=== PATIENT | male | born 1940 | race Caucasian/White ===

== ENCOUNTER 2020-01-02 20:15 | Inpatient (IN) | payer MEDICARE ==
[2020-01-02] MEDS ORDERED: Rocephin 1000 MG INJ IV ONE (20:24)
[2020-01-02] MEDS ORDERED: Rocephin 1000 MG INJ IM ONE (20:24)
[2020-01-02] MEDS ORDERED: ROCEPHIN 1 Gm-D5w 50 ml Bag** 1 G/50 ML IVPB IV ONE (20:40)
[2020-01-02] MEDS ORDERED: ROCEPHIN 1 Gm-D5w 50 ml Bag** 1 G/50 ML IVPB IV STA (20:44)
[2020-01-02 20:46] LABS: BASOPHIL % 0.4 % (0.0-0.4); Basophil (Absolute #) 0.03 (0-0.4); Eosinophil % 1.5 % (0.00-5.0); Eosinophil (Absolute #) 0.13 (0-0.5); Hematocrit 36.5 % (42-50); Hemoglobin 11.7 gm/dl (12.5-18.0); Lymphocyte (Absolute #) 0.91 (1.0-4.6); Lymphocytes % 10.8 % (24.0-44.0); Mean Cell Volume 90.8 fl (78-100); Mean Corpuscular Hemoglobin 29.1 pg (26-32); Mean Corpuscular Hgb Concent. 32.1 g/dl (32-36); Mean Platelet Volume 9.9 fl (7.5-11.0); Monocyte (Absolute #) 0.66 (0.0-1.3); Monocytes % 7.8 % (0.0-12.0); Neutrophil % 79.5 % (36.0-66.0); Platelet Count 409 K/mm3 (150-450); Red Blood Count 4.02 M/mm3 (4.1-5.6); Red Cell Distribution Width 13.3 % (11.5-14.0); White Blood Count 8.4 K/mm3 (4.0-10.5)
[2020-01-02 21:07] LABS: ALBUMIN 4.1 g/dL (3.5-5.0); ANION GAP 15.3 MEQ/L (5-15); BILIRUBIN,TOTAL 0.4 mg/dL (0.2-1.3); Calcium 9.9 mg/dL (8.4-10.2); Creatinine 1 1.85 mg/dL (0.66-1.25); Potassium 4.8 mmol/L (3.5-5.1)
--- NOTE | 2020-01-02 21:08 | ERPHSYRPT ---
- History of Present Illness Time Seen by Provider: 01/02/20 20:20 Source: patient, family Exam Limitations: no limitations Patient Subjective Stated Complaint: pt states that he went [facility] for redness to rt lower extremity, pt states that [facility] did a doppler, pt states that doppler was negative for DVT, pt states that he went [facility] to [facility] saturday for increased swelling and redness, pt states that his antibiotic was changed to bactrim on saturday Triage Nursing Assessment: pt ambulated into the er, axo x3, pt is hypertensive , redness to RLE, swelling present, RLE is warm, shinny, positive pedal pulses, pt states 3/10 pain to RLE, pitting edema to rt foot, nails are yellow and thick Timing/Duration: day(s) (6), constant, worse Quality: painful Severity: moderate Location: extremities (RT lower EXT) Associated Symptoms: edema, rash Allergies/Adverse Reactions: No Known Drug Allergies Allergy (Verified 01/02/20 20:42) Home Medications: Metformin HCl 500 mg [Glucophage 500 MG] 500 mg PO BID 07/17/12 [History] Moexipril HCl 15 mg [Univasc 15 MG] 15 mg PO DAILY 07/17/12 [History] Multivitamin [Multivitamins] 1 each PO DAILY 07/17/12 [History] Potassium Chloride 10 Meq Tab* [Klor Con 10 MEQ] 10 meq PO DAILY 07/17/12 [ History] Simvastatin 20Mg [Zocor 20Mg] 10 mg PO DAILY 07/17/12 [History] Diltiazem HCl [Cartia Xt] 240 mg PO DAILY 01/02/20 [History] Losartan Potassium 100 mg PO DAILY 01/02/20 [History] Metoprolol Tartrate 50 mg [Lopressor 50 MG] 50 mg PO BID 01/02/20 [History ] Hx Tetanus, Diphtheria Vaccination/Date Given: Yes (07/17/12) Hx Influenza Vaccination/Date Given: Yes Hx Pneumococcal Vaccination/Date Given: Yes (2 years ago) - Review of Systems Constitutional: No Fever, No Chills Eyes: No Symptoms Ears, Nose, & Throat: No Symptoms Respiratory: No Cough, No Dyspnea Cardiac: No Chest Pain, No Edema, No Syncope Abdominal/Gastrointestinal: No Abdominal Pain, No Nausea, No Vomiting, No Diarrhea Genitourinary Symptoms: No Dysuria Musculoskeletal: No Back Pain, No Neck Pain Skin: Cellulitis, Rash Neurological: No Dizziness, No Focal Weakness, No Sensory Changes Psychological: No Symptoms Endocrine: No Symptoms All Other Systems: Reviewed and Negative - Past Medical History Neurological History: No Pertinent History ENT History: Cataracts Cardiac History: High Cholesterol, Hypertension Respiratory History: No Pertinent History Endocrine Medical History: Diabetes Type II Musculoskeletal History: Fractures GI Medical History: No Pertinent History History: No Pertinent History Psycho-Social History: No Pertinent History 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% - Past Surgical History Past Surgical History: Yes Neuro Surgical History: No Pertinent History Cardiac: No Pertinent History Respiratory: No Pertinent History Gastrointestinal: No Pertinent History Genitourinary: No Pertinent History Musculoskeletal: Orthopedic Surgery Male Surgical History: Testicular Surgery Other Surgical History: cataract surgery both eyes - Social History Smoking Status: Former smoker Exposure to second hand smoke: No Drug Use: none Patient Lives Alone: No - Nursing Vital Signs Nursing Vital Signs: Initial Vital Signs Temperature 97.5 F 01/02/20 20:23 Pulse Rate 64 01/02/20 20:23 Respiratory Rate 21 01/02/20 20:23 Blood Pressure 160/67 01/02/20 20:23 O2 Sat by Pulse Oximetry 96 01/02/20 20:23 Pain Scale Pain Intensity 3 - Physical Exam General Appearance: no apparent distress, alert Eye Exam: PERRL/EOMI, eyes nml inspection Ears, Nose, Throat Exam: normal ENT inspection, pharynx normal, moist mucous membranes Neck Exam: normal inspection, non-tender, supple, full range of motion Respiratory Exam: normal breath sounds, lungs clear, No respiratory distress Cardiovascular Exam: regular rate/rhythm, normal heart sounds Gastrointestinal/Abdomen Exam: soft, mass, No tenderness Back Exam: normal inspection, normal range of motion, No CVA tenderness, No vertebral tenderness Extremity Exam: normal inspection, normal range of motion Neurologic Exam: alert, oriented x 3, cooperative, normal mood/affect, sensation nml, No motor deficits Skin Exam: warm, dry, other (Small patch of blistering lesions, yellow colored, surrounding erythema, mildly tender. Rt lower leg.) SpO2: 97 Ordered Tests: Active Orders 24 hr Category Date Time Status IV Insertion STAT Care 01/02/20 20:24 Completed Low Sodium Diet 01/02/20 Breakfast Active BMP AM.LAB Lab 01/03/20 04:00 Ordered CBC W DIFF AM.LAB Lab 01/03/20 04:00 Ordered CBC W DIFF Stat Lab 01/02/20 20:24 Completed CMP Stat Lab 01/02/20 20:24 Completed Medication Summary Generic Name Dose Route Start Last Admin Trade Name Liza PRN Reason Stop Dose Admin Acetaminophen 650 mg 01/02/20 22:15 Tylenol 325 Mg PO 02/01/20 22:14 Q4H PRN PRN PAIN AND/OR FEVER Ceftriaxone Sodium/Dextrose 1 g in 50 mls @ 100 mls/hr 01/03/20 10:00 Rocephin 1 Gm-D5w 50 Ml Bag IV 02/02/20 09:59 Q24H10 LANNY Sodium Chloride 1,000 mls @ 100 mls/hr 01/02/20 22:15 01/02/20 23:21 Sodium Chloride 0.9% 1000 Ml IV 02/01/20 22:14 100 mls/hr .Q10H LANNY Administration Vancomycin HCl 1 gm/ Sodium 250 mls @ 167 mls/hr 01/02/20 22:30 01/02/20 23: 22 Chloride IV 02/01/20 22:29 167 mls/hr Q24H LANNY Administration Discontinued Medications Generic Name Dose Route Start Last Admin Trade Name Liza PRN Reason Stop Dose Admin Ceftriaxone Sodium mg 01/02/20 20:24 Rocephin 1000 Mg Inj IM 01/02/20 20:25 STAT ONE Ceftriaxone Sodium 1,000 mg 01/02/20 20:24 01/02/20 20:44 Rocephin 1000 Mg Inj IV 01/02/20 20:25 Not Given STAT ONE Ceftriaxone Sodium/Dextrose Confirm 01/02/20 20:40 Rocephin 1 Gm-D5w 50 Ml Bag Administered 01/02/20 20:41 Dose 1 g in 50 mls @ ud IV .[facility]-MED ONE Ceftriaxone Sodium/Dextrose 1 g in 50 mls @ 100 mls/hr 01/02/20 20:44 21:18 Rocephin 1 Gm-D5w 50 Ml Bag IV 01/02/20 21:13 Infused STAT STA Infusion Vancomycin HCl Confirm 01/02/20 23:02 Vancomycin 1gm/ Ns 250ml Administered 01/02/20 23:03 Dose 250 mls @ IV .[facility] Lab/Rad Data: Laboratory Result Diagrams 01/02/20 20:24 01/02/20 20:24 Laboratory Results 01/02/20 01/02/20 Range/Units 20:24 20:24 WBC 8.4 (4.0-10.5) K/mm3 RBC 4.02 L (4.1-5.6) M/mm3 Hgb 11.7 L (12.5-18.0) gm/dl Hct 36.5 L (42-50) % MCV 90.8 (78-100) fl MCH 29.1 (26-32) pg MCHC 32.1 (32-36) g/dl RDW 13.3 (11.5-14.0) % Plt Count 409 (150-450) K/mm3 MPV 9.9 (7.5-11.0) fl Gran % 79.5 H (36.0-66.0) % Eos # (Auto) 0.13 (0-0.5) Absolute Lymphs (auto) 0.91 L (1.0-4.6) Absolute Monos (auto) 0.66 (0.0-1.3) Lymphocytes % 10.8 L (24.0-44.0) % Monocytes % 7.8 (0.0-12.0) % Eosinophils % 1.5 (0.00-5.0) % Basophils % 0.4 (0.0-0.4) % Absolute Granulocytes 6.70 (1.4-6.9) Basophils # 0.03 (0-0.4) Sodium 140 (137-145) mmol/L Potassium 4.8 (3.5-5.1) mmol/L Chloride 101 (98-107) mmol/L Carbon Dioxide 28 (22-30) mmol/L Anion Gap 15.3 H (5-15) MEQ/L BUN 39 H (9-20) mg/dL Creatinine 1.85 H (0.66-1.25) mg/dL Estimated GFR 37.9 ML/MIN Glucose 121 H (74-106) mg/dL Calcium 9.9 (8.4-10.2) mg/dL Total Bilirubin 0.40 (0.2-1.3) mg/dL AST 42 (17-59) U/L ALT 44 (0-50) U/L Alkaline Phosphatase 77 (38-126) U/L Serum Total Protein 8.0 (6.3-8.2) g/dL Albumin 4.1 (3.5-5.0) g/dL - Progress Progress: improved (PT is better. Will admit given failed outpatient tx x 2.) - Departure Departure Disposition: In-patient Admission Clinical Impression: Cellulitis of leg, Cellulitis and abscess of foot Condition: Stable Critical Care Time: No
[2020-01-02] MEDS ORDERED: TYLENOL 325 MG PO PRN (22:15)
[2020-01-02] MEDS ORDERED: VANCOCIN 1 GM VIAL*** 1 GM in Sodium Chloride 0.9% 250 ML 250 ML IV SCH (22:30)
[2020-01-02] MEDS ORDERED: Vancomycin 1GM/ Ns 250ML*** 250 ML IV ONE (23:02)
[2020-01-02] MEDS: Sodium Chloride 0.9% 1000 ML 1,000 ML IV SCH (23:21)
[2020-01-03 05:11] LABS: Absolute Neutrophil Ct (ANC) 5.01 (1.4-6.9); BASOPHIL % 0.3 % (0.0-0.4); Basophil (Absolute #) 0.02 (0-0.4); Eosinophil % 2.3 % (0.00-5.0); Eosinophil (Absolute #) 0.16 (0-0.5); Hematocrit 32.5 % (42-50); Hemoglobin 10.3 gm/dl (12.5-18.0); Lymphocytes % 15.9 % (24.0-44.0); Mean Corpuscular Hemoglobin 28.9 pg (26-32); Mean Corpuscular Hgb Concent. 31.7 g/dl (32-36); Mean Platelet Volume 9.4 fl (7.5-11.0); Monocyte (Absolute #) 0.63 (0.0-1.3); Monocytes % 9.1 % (0.0-12.0); Neutrophil % 72.4 % (36.0-66.0); Platelet Count 343 K/mm3 (150-450); Red Blood Count 3.57 M/mm3 (4.1-5.6); Red Cell Distribution Width 13.3 % (11.5-14.0); White Blood Count 6.9 K/mm3 (4.0-10.5)
[2020-01-03 05:44] LABS: ANION GAP 13.4 MEQ/L (5-15); Creatinine 1 1.67 mg/dL (0.66-1.25); Potassium 4.8 mmol/L (3.5-5.1)
--- NOTE | 2020-01-03 12:50 | PCM.HP ---
History of Present Illness - Chief Complaint Chief Complaint: RLE cellulitis History of Present Illness: is a 79 year old male pt of Dr. Flynn with PMHc DM, HTN, renal insufficiency, and chronic venous stasis who was admitted through ER last night with RLE cellulitis. He had been to 5d ago where doppler was neg for DVT and he was started on po keflex. Then 2d ago he had increased edema and redness and returned to , where the keflex was changed to bactrim. His WBC were 8.4 at admission; 6.9 today. His eGFR is 42.6. Pt states he's been having a cough that is productive of clear sputum. - Review of Systems Respiratory: Cough Skin: Cellulitis All Other Systems: Reviewed and Negative Medications & Allergies Home Medications: Home Medication List Metformin HCl 500 mg [Glucophage 500 MG] 500 mg PO BID 07/17/12 [History Confirmed 07/17/12] Moexipril HCl 15 mg [Univasc 15 MG] 15 mg PO DAILY 07/17/12 [History Confirmed 01/03/20] Multivitamin [Multivitamins] 1 each PO DAILY 07/17/12 [History Confirmed ] Potassium Chloride 10 Meq Tab* [Klor Con 10 MEQ] 10 meq PO DAILY 07/17/12 [ History Confirmed 07/17/12] Simvastatin 20Mg [Zocor 20Mg] 10 mg PO DAILY 07/17/12 [History Confirmed 01/21] Diltiazem HCl [Cartia Xt] 240 mg PO DAILY 01/02/20 [History Confirmed 01/02/20] Losartan Potassium 100 mg PO DAILY 01/02/20 [History Confirmed 01/02/20] Metoprolol Tartrate 50 mg [Lopressor 50 MG] 50 mg PO BID 01/02/20 [ History Confirmed 01/02/20] Allergies/Adverse Reactions: Allergies Allergy/AdvReac Type Severity Reaction Status Date / Time No Known Drug Allergies Allergy Verified 01/02/20 20:42 - Past Medical History Neurological History: No Pertinent History ENT History: Cataracts Cardiac History: High Cholesterol, Hypertension Respiratory History: No Pertinent History Endocrine Medical History: Diabetes Type II Musculoskelatal History: Fractures GI Medical History: No Pertinent History History: No Pertinent History Pyscho-Social History: No Pertinent History 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% - Past Surgical History Past Surgical History: Yes Neuro Surgical History: No Pertinent History Cardiac History: No Pertinent History Respiratory Surgery: No Pertinent History GI Surgical History: No Pertinent History Genitourinary Surgical Hx: No Pertinent History Musculskeletal Surgical Hx: Orthopedic Surgery Male Surgical History: Testicular Surgery Other Surgical History: cataract surgery both eyes - Social History Smoking Status: Former smoker Exposure to second hand smoke: No Alcohol: None Drug Use: none - Physical Exam Vital Signs: Vital Signs - 24 hr Temp Pulse Resp BP Pulse Ox 01/03/20 12:00 97.8 F 68 20 175/74 95 01/03/20 08:00 98.1 F 67 24 159/68 93 L 01/03/20 04:15 98.0 F 58 L 18 145/66 95 01/03/20 02:00 97 01/02/20 23:31 98.3 F 57 L 18 157/70 96 01/02/20 22:36 64 149/71 95 01/02/20 22:23 63 133/75 96 01/02/20 21:20 60 134/74 95 01/02/20 20:23 97.5 F 64 21 160/67 97 General Appearance: no apparent distress, alert Neurologic Exam: oriented x 3, cooperative Eye Exam: eyes nml inspection Ears, Nose, Throat Exam: moist mucous membranes Neck Exam: normal inspection, non-tender, No lymphadenopathy Respiratory Exam: diminished breath sounds (good air exchange), wheezing (faint expiratory wheezes), No crackles/rales, No rhonchi Cardiovascular Exam: regular rate/rhythm, normal heart sounds, No murmur Gastrointestinal/Abdomen Exam: soft, normal bowel sounds, No tenderness, No distention, No mass, No guarding, No rebound Extremity Exam: other (RLE edema, most marked of the foot. Erythema is present to approx 1/[address] from the ankle to the knee. There are no distinct open lesions.) Results - Labs Lab/Micro Results: Lab Results-Last 24 Hours 01/02/20 01/02/20 01/03/20 Range/Units 20:24 20:24 05:09 WBC 8.4 6.9 (4.0-10.5) K/mm3 RBC 4.02 L 3.57 L (4.1-5.6) M/mm3 Hgb 11.7 L 10.3 L (12.5-18.0) gm/dl Hct 36.5 L 32.5 L (42-50) % MCV 90.8 91.0 (78-100) fl MCH 29.1 28.9 (26-32) pg MCHC 32.1 31.7 L (32-36) g/dl RDW 13.3 13.3 (11.5-14.0) % Plt Count 409 343 (150-450) K/mm3 MPV 9.9 9.4 (7.5-11.0) fl Gran % 79.5 H 72.4 H (36.0-66.0) % Eos # (Auto) 0.13 0.16 (0-0.5) Absolute Lymphs (auto) 0.91 L 1.10 (1.0-4.6) Absolute Monos (auto) 0.66 0.63 (0.0-1.3) Lymphocytes % 10.8 L 15.9 L (24.0-44.0) % Monocytes % 7.8 9.1 (0.0-12.0) % Eosinophils % 1.5 2.3 (0.00-5.0) % Basophils % 0.4 0.3 (0.0-0.4) % Absolute Granulocytes 6.70 5.01 (1.4-6.9) Basophils # 0.03 0.02 (0-0.4) Sodium 140 (137-145) mmol/L Potassium 4.8 (3.5-5.1) mmol/L Chloride 101 (98-107) mmol/L Carbon Dioxide 28 (22-30) mmol/L Anion Gap 15.3 H (5-15) MEQ/L BUN 39 H (9-20) mg/dL Creatinine 1.85 H (0.66-1.25) mg/dL Estimated GFR 37.9 ML/MIN Glucose 121 H (74-106) mg/dL Calcium 9.9 (8.4-10.2) mg/dL Total Bilirubin 0.40 (0.2-1.3) mg/dL AST 42 (17-59) U/L ALT 44 (0-50) U/L Alkaline Phosphatase 77 (38-126) U/L Serum Total Protein 8.0 (6.3-8.2) g/dL Albumin 4.1 (3.5-5.0) g/dL 01/03/20 Range/Units 05:09 WBC (4.0-10.5) K/mm3 RBC (4.1-5.6) M/mm3 Hgb (12.5-18.0) gm/dl Hct (42-50) % MCV (78-100) fl MCH (26-32) pg MCHC (32-36) g/dl RDW (11.5-14.0) % Plt Count (150-450) K/mm3 MPV (7.5-11.0) fl Gran % (36.0-66.0) % Eos # (Auto) (0-0.5) Absolute Lymphs (auto) (1.0-4.6) Absolute Monos (auto) (0.0-1.3) Lymphocytes % (24.0-44.0) % Monocytes % (0.0-12.0) % Eosinophils % (0.00-5.0) % Basophils % (0.0-0.4) % Absolute Granulocytes (1.4-6.9) Basophils # (0-0.4) Sodium 139 (137-145) mmol/L Potassium 4.8 (3.5-5.1) mmol/L Chloride 105 (98-107) mmol/L Carbon Dioxide 26 (22-30) mmol/L Anion Gap 13.4 (5-15) MEQ/L BUN 36 H (9-20) mg/dL Creatinine 1.67 H (0.66-1.25) mg/dL Estimated GFR 42.6 ML/MIN Glucose 90 (74-106) mg/dL Calcium 9.0 (8.4-10.2) mg/dL Total Bilirubin (0.2-1.3) mg/dL AST (17-59) U/L ALT (0-50) U/L Alkaline Phosphatase (38-126) U/L Serum Total Protein (6.3-8.2) g/dL Albumin (3.5-5.0) g/dL Assessment/Plan (1) Cellulitis of leg Current Visit: Yes Status: Acute Assessment & Plan: On IV vancomycin and rocephin, day #2. (2) Renal insufficiency Current Visit: Yes Status: Acute Assessment & Plan: eGFR is approx average per lab results in [place]. (3) Diabetes mellitus Current Visit: Yes Status: Chronic Qualifiers: Diabetes mellitus type: type 2 Diabetes mellitus prison insulin use: without termite treater helper use Diabetes mellitus complication status: with kidney complications Diabetes mellitus complication detail: with chronic kidney disease Chronic kidney disease stage: stage 3 (moderate) Qualified Code(s): E11.22 - Type 2 diabetes mellitus with diabetic chronic kidney disease; N18.3 - Chronic kidney disease, stage 3 (moderate) Code(s): E11.9 - TYPE 2 DIABETES MELLITUS WITHOUT COMPLICATIONS (4) Hypertension Current Visit: Yes Status: Chronic Qualifiers: Hypertension type: essential hypertension Qualified Code(s): I10 - Essential (primary) hypertension Code(s): I10 - ESSENTIAL (PRIMARY) HYPERTENSION
[2020-01-03] MEDS: ENOXAPARIN SODIUM SQ SCH (14:25)
[2020-01-03] MEDS: Cardizem CD 120 MG PO SCH (17:07)
[2020-01-03] MEDS: Cozaar 50 MG PO SCH (17:07)
[2020-01-03] MEDS: UNIVASC PO SCH (17:08)
--- NOTE | 2020-01-03 18:00 | XRAY ---
Indication: Cough. Comparison: July 17, 2012. PA/lateral chest again hyperinflated with chronic interstitial lung markings. No focal infiltrate, consolidation, or large effusion. Heart and mediastinal structures within normal limits. Bony thorax intact again with moderate degenerative changes. Impression: Nonacute hyperinflated chest with chronic features. Comment: Preliminary interpretation was made by [facility]. No critical discrepancy.
[2020-01-03] MEDS: Sodium Chloride 0.9% 1000 ML 1,000 ML IV SCH (21:51)
[2020-01-03] MEDS: Zocor 10MG PO SCH (21:53)
[2020-01-03] MEDS: Lopressor 50 MG PO SCH (21:53)
[2020-01-03] MEDS: Klor Con 10 MEQ PO SCH (21:53)
[2020-01-03] MEDS: ROCEPHIN 1 Gm-D5w 50 ml Bag** 1 G/50 ML IVPB IV SCH (21:54)
[2020-01-03] MEDS: VANCOMYCIN 1 GRAM/200 ML BAG 1 GM/200 ML PIGGYBACK IV SCH (23:06)
[2020-01-04 05:11] LABS: Hematocrit 34.8 % (42-50); Mean Cell Volume 91.1 fl (78-100); Mean Corpuscular Hemoglobin 28.8 pg (26-32); Mean Corpuscular Hgb Concent. 31.6 g/dl (32-36); Mean Platelet Volume 9.6 fl (7.5-11.0); Platelet Count 389 K/mm3 (150-450); Red Blood Count 3.82 M/mm3 (4.1-5.6); Red Cell Distribution Width 13.4 % (11.5-14.0); White Blood Count 5.9 K/mm3 (4.0-10.5)
[2020-01-04 05:17] LABS: ANION GAP 13.8 MEQ/L (5-15); Creatinine 1 1.47 mg/dL (0.66-1.25); Potassium 5.1 mmol/L (3.5-5.1)
--- NOTE | 2020-01-04 08:41 | PCM.NOTE ---
Date and Time: 01/04/20 0840 Subjective Assessment: patient has no specific complaints, states he is feeling ok. has some pain in the right foot and leg and when attempting to ambulate Objective Exam General Appearance: no apparent distress, alert Wound Assessment: Skin/Wound Assessment Wound/Incision Assessment Start: 01/02/20 23: 07 Text: Status: Active Freq: Q6H Protocol: Document 01/04/20 02:00 (Rec: 01/04/20 07:31 [id number]) Wound/Incision Assessment Right Lower Calf Wound Assessment Shift Assessment Wound Type redness Dressing Status Dry & Intact Drainage Amount None Drainage Odor None/Absent General Appearance Well Approximated Clean/Dry Reddened Wound Photo Photo Taken No Eye Exam: PERRL, EOMI, eyes nml inspection Respiratory Exam: normal breath sounds, lungs clear, No respiratory distress Cardiovascular Exam: regular rate/rhythm, normal heart sounds Gastrointestinal/Abdomen Exam: soft, No tenderness, No mass Extremity Exam: other (right foot and ankle with induration, erythema and warmth to palpation from dorsal foot to mid-calf) OBJECTIVE DATA Vital Signs: Vital Signs - 24 hr Temp Pulse Resp BP Pulse Ox 01/04/20 07:13 97.8 F 58 L 20 158/69 94 L 01/04/20 04:00 98.5 F 62 18 175/77 96 01/04/20 00:00 98.0 F 64 20 139/78 98 01/03/20 20:00 98.1 F 61 20 167/74 97 01/03/20 16:00 98.1 F 68 21 187/83 94 L 01/03/20 12:00 97.8 F 68 20 175/74 95 Pain Assessment - Last Documented Pain Intensity 0 Pain Scale Used [facility] Intake and Output: Intake & Output 01/01/20 01/02/20 01/03/20 01/04/20 11:59 11:59 11:59 11:59 Intake Total 933 3460 Balance 933 3460 Weight 85.3 kg Lab Results: Lab Results-Last 24 Hours 01/04/20 01/04/20 Range/Units 04:40 04:40 WBC 5.9 (4.0-10.5) K/mm3 RBC 3.82 L (4.1-5.6) M/mm3 Hgb 11.0 L (12.5-18.0) gm/dl Hct 34.8 L (42-50) % MCV 91.1 (78-100) fl MCH 28.8 (26-32) pg MCHC 31.6 L (32-36) g/dl RDW 13.4 (11.5-14.0) % Plt Count 389 (150-450) K/mm3 MPV 9.6 (7.5-11.0) fl Sodium 140 (137-145) mmol/L Potassium 5.1 (3.5-5.1) mmol/L Chloride 106 (98-107) mmol/L Carbon Dioxide 25 (22-30) mmol/L Anion Gap 13.8 (5-15) MEQ/L BUN 28 H (9-20) mg/dL Creatinine 1.47 H (0.66-1.25) mg/dL Estimated GFR 49.4 ML/MIN Glucose 92 (74-106) mg/dL Calcium 9.0 (8.4-10.2) mg/dL Radiology Exams: Radiology Procedures Category Date Time Status CHEST 2 VIEWS (PA AND LAT) Routine Exams 01/03/20 13:37 Completed Assessment/Plan (1) Cellulitis of leg Current Visit: Yes Status: Acute Assessment & Plan: continue vanc/rocephin (2) Renal insufficiency Current Visit: Yes Status: Acute (3) Diabetes mellitus Current Visit: Yes Status: Chronic Qualifiers: Diabetes mellitus type: type 2 Diabetes mellitus motorman/woman insulin use: without motorman/woman use Diabetes mellitus complication status: with kidney complications Diabetes mellitus complication detail: with chronic kidney disease Chronic kidney disease stage: stage 3 (moderate) Qualified Code(s): E11.22 - Type 2 diabetes mellitus with diabetic chronic kidney disease; N18.3 - Chronic kidney disease, stage 3 (moderate) Code(s): E11.9 - TYPE 2 DIABETES MELLITUS WITHOUT COMPLICATIONS (4) Hypertension Current Visit: Yes Status: Chronic Qualifiers: Hypertension type: essential hypertension Qualified Code(s): I10 - Essential (primary) hypertension Code(s): I10 - ESSENTIAL (PRIMARY) HYPERTENSION
[2020-01-04] MEDS: Lopressor 50 MG PO SCH ×2 (09:13→21:20)
[2020-01-04] MEDS: Cardizem CD 120 MG PO SCH (09:13)
[2020-01-04] MEDS: Cozaar 50 MG PO SCH (09:13)
[2020-01-04] MEDS: ENOXAPARIN SODIUM SQ SCH (09:14)
[2020-01-04] MEDS: Klor Con 10 MEQ PO SCH ×2 (09:14→21:20)
[2020-01-04] MEDS: UNIVASC PO SCH (09:15)
[2020-01-04] MEDS: Sodium Chloride 0.9% 1000 ML 1,000 ML IV SCH ×2 (10:04→19:53)
[2020-01-04] MEDS: ROCEPHIN 1 Gm-D5w 50 ml Bag** 1 G/50 ML IVPB IV SCH (21:17)
[2020-01-04] MEDS: Zocor 10MG PO SCH (21:20)
[2020-01-04] MEDS: VANCOMYCIN 1 GRAM/200 ML BAG 1 GM/200 ML PIGGYBACK IV SCH (21:59)
[2020-01-04] MEDS ORDERED: ZOCOR 20MG PO SCH (22:00)
[2020-01-05 05:45] LABS: Absolute Neutrophil Ct (ANC) 4.25 (1.4-6.9); BASOPHIL % 0.3 % (0.0-0.4); Basophil (Absolute #) 0.02 (0-0.4); Eosinophil % 4.4 % (0.00-5.0); Eosinophil (Absolute #) 0.27 (0-0.5); Hematocrit 32.5 % (42-50); Hemoglobin 10.3 gm/dl (12.5-18.0); Lymphocyte (Absolute #) 1.04 (1.0-4.6); Lymphocytes % 16.8 % (24.0-44.0); Mean Cell Volume 91.8 fl (78-100); Mean Corpuscular Hemoglobin 29.1 pg (26-32); Mean Corpuscular Hgb Concent. 31.7 g/dl (32-36); Mean Platelet Volume 9.4 fl (7.5-11.0); Monocytes % 9.7 % (0.0-12.0); Neutrophil % 68.8 % (36.0-66.0); Platelet Count 375 K/mm3 (150-450); Red Blood Count 3.54 M/mm3 (4.1-5.6); Red Cell Distribution Width 13.2 % (11.5-14.0); White Blood Count 6.2 K/mm3 (4.0-10.5)
[2020-01-05 06:02] LABS: ANION GAP 11.6 MEQ/L (5-15); BLOOD UREA NITROGEN 22 mg/dL (9-20); CHLORIDE 108 mmol/L (98-107); Calcium 8.7 mg/dL (8.4-10.2); Carbon Dioxide 24 mmol/L (22-30); Glucose 93 mg/dL (74-106); Potassium 4.5 mmol/L (3.5-5.1); SODIUM 139 mmol/L (137-145)
[2020-01-05] MEDS: Sodium Chloride 0.9% 1000 ML 1,000 ML IV SCH ×2 (08:03→18:17)
--- NOTE | 2020-01-05 08:44 | PCM.NOTE ---
Date and Time: 01/05/20 0843 Subjective Assessment: Pt was up walking yesterday but the leg is painful. Toshia po. - Review of Systems Constitutional: No Fever Skin: Cellulitis Objective Exam General Appearance: no apparent distress, alert Neurologic Exam: oriented x 3, cooperative Skin Exam: other (RLE erythema mildly decreased; there is an area of mild yellowing approx 2x5cm medially) Wound Assessment: Skin/Wound Assessment Wound/Incision Assessment Start: 01/02/20 23: 07 Text: Status: Active Freq: Q6H Protocol: Document 01/05/20 08:00 [email or web address] (Rec: 01/05/20 08:36 [email or web address] [id number]) Wound/Incision Assessment Right Lower Calf Wound Assessment Shift Assessment Wound Type cellulitis General Appearance Reddened Surrounding Tissue [place] Comment warm to touch Wound Photo Photo Taken No Eye Exam: eyes nml inspection Ears, Nose, Throat Exam: moist mucous membranes Respiratory Exam: normal breath sounds, lungs clear, No crackles/rales, No rhonchi, No wheezing Cardiovascular Exam: regular rate/rhythm, normal heart sounds, No murmur OBJECTIVE DATA Vital Signs: Vital Signs - 24 hr Temp Pulse Resp BP Pulse Ox 01/05/20 07:40 98.5 F 59 L 18 170/68 93 L 01/05/20 04:00 98.4 F 70 20 135/72 95 01/05/20 00:00 97.4 F 55 L 18 178/81 95 01/04/20 21:19 98.6 F 62 20 160/80 95 01/04/20 18:26 158/70 01/04/20 17:43 175/84 01/04/20 16:53 98.4 F 76 20 170/78 97 01/04/20 12:24 98 F 62 20 160/70 97 Pain Assessment - Last Documented Pain Intensity 2 Pain Scale Used 0-10 Pain Scale Intake and Output: Intake & Output 01/02/20 01/03/20 01/04/20 01/05/20 11:59 11:59 11:59 11:59 Intake Total 933 3580 3339 Output Total 400 1275 Balance 933 3180 2064 Weight 85.3 kg Lab Results: Lab Results-Last 24 Hours 01/05/20 01/05/20 Range/Units 05:25 05:25 WBC 6.2 (4.0-10.5) K/mm3 RBC 3.54 L (4.1-5.6) M/mm3 Hgb 10.3 L (12.5-18.0) gm/dl Hct 32.5 L (42-50) % MCV 91.8 (78-100) fl MCH 29.1 (26-32) pg MCHC 31.7 L (32-36) g/dl RDW 13.2 (11.5-14.0) % Plt Count 375 (150-450) K/mm3 MPV 9.4 (7.5-11.0) fl Gran % 68.8 H (36.0-66.0) % Eos # (Auto) 0.27 (0-0.5) Absolute Lymphs (auto) 1.04 (1.0-4.6) Absolute Monos (auto) 0.60 (0.0-1.3) Lymphocytes % 16.8 L (24.0-44.0) % Monocytes % 9.7 (0.0-12.0) % Eosinophils % 4.4 (0.00-5.0) % Basophils % 0.3 (0.0-0.4) % Absolute Granulocytes 4.25 (1.4-6.9) Basophils # 0.02 (0-0.4) Sodium 139 (137-145) mmol/L Potassium 4.5 (3.5-5.1) mmol/L Chloride 108 H (98-107) mmol/L Carbon Dioxide 24 (22-30) mmol/L Anion Gap 11.6 (5-15) MEQ/L BUN 22 H (9-20) mg/dL Creatinine 1.20 (0.66-1.25) mg/dL Estimated GFR > 60.0 ML/MIN Glucose 93 (74-106) mg/dL Calcium 8.7 (8.4-10.2) mg/dL Radiology Exams: Radiology Procedures Category Date Time Status CHEST 2 VIEWS (PA AND LAT) Routine Exams 01/03/20 13:37 Completed Assessment/Plan (1) Cellulitis of leg Current Visit: Yes Status: Acute Qualifiers: Laterality: right Qualified Code(s): L03.115 - Cellulitis of right lower limb Assessment & Plan: Mildly improved. stay on rocephin and vancomycin. (2) Renal insufficiency Current Visit: Yes Status: Acute Assessment & Plan: improved, eGFR >60 this morning. (3) Diabetes mellitus Current Visit: Yes Status: Chronic Qualifiers: Diabetes mellitus type: type 2 Diabetes mellitus nursing home insulin use: without nursing home use Diabetes mellitus complication status: with kidney complications Diabetes mellitus complication detail: with chronic kidney disease Chronic kidney disease stage: stage 3 (moderate) Qualified Code(s): E11.22 - Type 2 diabetes mellitus with diabetic chronic kidney disease; N18.3 - Chronic kidney disease, stage 3 (moderate) Code(s): E11.9 - TYPE 2 DIABETES MELLITUS WITHOUT COMPLICATIONS (4) Hypertension Current Visit: Yes Status: Chronic Qualifiers: Hypertension type: essential hypertension Qualified Code(s): I10 - Essential (primary) hypertension Assessment & Plan: I added hydralazine 25mg po BID to his regimen, some BPs in 170s systolic yesterday and last night. Code(s): I10 - ESSENTIAL (PRIMARY) HYPERTENSION
[2020-01-05] MEDS: ENOXAPARIN SODIUM SQ SCH (10:28)
[2020-01-05] MEDS: Lopressor 50 MG PO SCH ×2 (10:28→21:41)
[2020-01-05] MEDS: Cardizem CD 120 MG PO SCH (10:29)
[2020-01-05] MEDS: Cozaar 50 MG PO SCH (10:29)
[2020-01-05] MEDS: Klor Con 10 MEQ PO SCH ×2 (10:29→21:45)
[2020-01-05] MEDS: Apresoline 25 MG TABLET PO SCH ×2 (10:30→21:45)
[2020-01-05] MEDS: UNIVASC PO SCH (10:31)
[2020-01-05] MEDS ORDERED: TROUGH DRUG LEVELS IJ ONE (21:30)
[2020-01-05] MEDS: ROCEPHIN 1 Gm-D5w 50 ml Bag** 1 G/50 ML IVPB IV SCH (21:41)
[2020-01-05] MEDS: Zocor 10MG PO SCH (21:41)
[2020-01-05] MEDS: VANCOMYCIN 1 GRAM/200 ML BAG 1 GM/200 ML PIGGYBACK IV SCH (22:23)
[2020-01-06] MEDS: Sodium Chloride 0.9% 1000 ML 1,000 ML IV SCH ×4 (06:22→22:14)
[2020-01-06] MEDS: Klor Con 10 MEQ PO SCH ×2 (09:22→21:11)
[2020-01-06] MEDS: Cozaar 50 MG PO SCH (09:22)
[2020-01-06] MEDS: Lopressor 50 MG PO SCH ×2 (09:23→21:11)
[2020-01-06] MEDS: UNIVASC PO SCH (09:23)
[2020-01-06] MEDS: Cardizem CD 120 MG PO SCH (09:23)
[2020-01-06] MEDS: Apresoline 25 MG TABLET PO SCH ×3 (09:23→21:11)
[2020-01-06] MEDS: ENOXAPARIN SODIUM SQ SCH (09:23)
--- NOTE | 2020-01-06 09:34 | PCM.NOTE ---
Date and Time: 01/06/20932 Subjective Assessment: reports improvement in pain and redness to right lower leg, thinks he is getting better. no other complaints Objective Exam General Appearance: no apparent distress, alert Neurologic Exam: alert, oriented x 3, cooperative, normal mood/affect, nml cerebellar function, sensation nml, No motor deficits Wound Assessment: Skin/Wound Assessment Wound/Incision Assessment Start: 01/02/20 23: 07 Text: Status: Active Freq: Q6H Protocol: Document 01/06/20 07:34 [facility] (Rec: 01/06/20 07:36 [facility] [id number]) Wound/Incision Assessment Right Lower Calf Wound Assessment Shift Assessment Wound Type cellulitis Drainage Amount None General Appearance Reddened Surrounding Tissue [place] Comment reddened, warm to touch, slight edema noted. Wound Photo Photo Taken No Respiratory Exam: normal breath sounds, lungs clear, No respiratory distress Cardiovascular Exam: regular rate/rhythm, normal heart sounds Gastrointestinal/Abdomen Exam: soft, No tenderness, No mass Extremity Exam: other (right lower chavis with erythema, warmth periphery is improving and area is decreasing in size) OBJECTIVE DATA Vital Signs: Vital Signs - 24 hr Temp Pulse Resp BP Pulse Ox 01/06/20 09:29 59 L 177/74 01/06/20 06:47 98.2 F 55 L 18 181/94 95 01/06/20 04:00 97.4 F 54 L 18 179/76 94 L 01/05/20 23:55 98.0 F 52 L 18 174/74 95 01/05/20 19:37 97.6 F 63 20 181/81 97 01/05/20 16:00 98.4 F 55 L 16 172/81 96 01/05/20 11:39 98.2 F 50 L 18 183/86 97 Pain Assessment - Last Documented Pain Intensity 0 Pain Scale Used 0-10 Pain Scale Intake and Output: Intake & Output 01/03/20 01/04/20 01/05/20 01/06/20 11:59 11:59 11:59 11:59 Intake Total 933 3580 3339 2606 Output Total 400 1775 1575 Balance 933 3180 1564 1031 Weight 85.3 kg 85.3 kg Lab Results: Lab Results-Last 24 Hours 01/05/20 Range/Units 21:41 Vancomycin Trough 9.88 L (10-20) ug/mL Multi-Disciplinary Progress Notes: Multi-Disciplinary Progress Notes 01/06/20 07:46 Pharmacy Note by Joseph Flowers Vancomycin trough a little low at 9.88. Will decrease interval to q18h to increase level. Creatinine improving. Initialized on 01/06/20 07:46 - END OF NOTE Assessment/Plan (1) Cellulitis of leg Current Visit: Yes Status: Acute Qualifiers: Laterality: right Qualified Code(s): L03.115 - Cellulitis of right lower limb Assessment & Plan: doing better, continue vanc/rocephin. possible d/c tomorrow if continues to improve (2) Renal insufficiency Current Visit: Yes Status: Acute (3) Diabetes mellitus Current Visit: Yes Status: Chronic Qualifiers: Diabetes mellitus type: type 2 Diabetes mellitus termite treater helper insulin use: without termite treater helper use Diabetes mellitus complication status: with kidney complications Diabetes mellitus complication detail: with chronic kidney disease Chronic kidney disease stage: stage 3 (moderate) Qualified Code(s): E11.22 - Type 2 diabetes mellitus with diabetic chronic kidney disease; N18.3 - Chronic kidney disease, stage 3 (moderate) Code(s): E11.9 - TYPE 2 DIABETES MELLITUS WITHOUT COMPLICATIONS (4) Hypertension Current Visit: Yes Status: Chronic Qualifiers: Hypertension type: essential hypertension Qualified Code(s): I10 - Essential (primary) hypertension Code(s): I10 - ESSENTIAL (PRIMARY) HYPERTENSION
[2020-01-06] MEDS ORDERED: Apresoline 25 MG TABLET PO ONE (10:45)
[2020-01-06] MEDS: VANCOMYCIN 1 GRAM/200 ML BAG 1 GM/200 ML PIGGYBACK IV SCH (16:39)
[2020-01-06] MEDS: Zocor 10MG PO SCH (21:11)
[2020-01-06] MEDS: ROCEPHIN 1 Gm-D5w 50 ml Bag** 1 G/50 ML IVPB IV SCH (21:11)
[2020-01-07 04:40] LABS: Absolute Neutrophil Ct (ANC) 5.16 (1.4-6.9); BASOPHIL % 0.7 % (0.0-0.4); Basophil (Absolute #) 0.05 (0-0.4); Eosinophil % 3.5 % (0.00-5.0); Eosinophil (Absolute #) 0.26 (0-0.5); Hematocrit 33.8 % (42-50); Hemoglobin 10.6 gm/dl (12.5-18.0); Lymphocyte (Absolute #) 1.27 (1.0-4.6); Lymphocytes % 17.2 % (24.0-44.0); Mean Cell Volume 91.4 fl (78-100); Mean Corpuscular Hemoglobin 28.6 pg (26-32); Mean Corpuscular Hgb Concent. 31.4 g/dl (32-36); Mean Platelet Volume 9.4 fl (7.5-11.0); Monocyte (Absolute #) 0.65 (0.0-1.3); Monocytes % 8.8 % (0.0-12.0); Neutrophil % 69.8 % (36.0-66.0); Platelet Count 411 K/mm3 (150-450); Red Cell Distribution Width 13.3 % (11.5-14.0); White Blood Count 7.4 K/mm3 (4.0-10.5)
[2020-01-07 04:49] LABS: ANION GAP 11.9 MEQ/L (5-15); BLOOD UREA NITROGEN 18 mg/dL (9-20); CHLORIDE 108 mmol/L (98-107); Carbon Dioxide 25 mmol/L (22-30); Creatinine 1 1.04 mg/dL (0.66-1.25); Glucose 103 mg/dL (74-106); Potassium 4.3 mmol/L (3.5-5.1); SODIUM 140 mmol/L (137-145)
[2020-01-07 07:07] VITALS: BP 172/78; PULSE 68; O2SAT 93
--- NOTE | 2020-01-07 08:41 | PCM.DS ---
Discharge Summary Date of Admission: 01/03/20 10:00 Admitting Physician: LUZ ELENA PENALOZA Primary Care Provider: ALEJANDRA GORDON Allergies Allergies No Known Drug Allergies Allergy (Verified 01/02/20 20:42) Hospital Summary - Hospital Course Hospital Course: patient was admitted with cellulitis of right lower leg, has improved with IV vanc and rocephin, redness improved, pain and swelling are better as well. - Vitals & Intake/Output Vital Signs: Vital Signs Temperature 97.4 F 01/07/20 07:06 Pulse Rate 68 01/07/20 07:06 Respiratory Rate 18 01/07/20 07:06 Blood Pressure 172/78 01/07/20 07:06 O2 Sat by Pulse Oximetry 93 L 01/07/20 07:06 Intake & Output: Intake & Output 01/04/20 01/05/20 01/06/20 01/07/20 11:59 11:59 11:59 11:59 Intake Total 3580 3339 2606 2688 Output Total 400 1775 1575 2925 Balance 3180 1564 1031 -237 Weight 85.3 kg - Lab Result Diagrams: 01/07/20 04:36 01/07/20 04:36 Lab Results-Last 24 Hrs: Lab Results-Last 24 Hours 01/07/20 01/07/20 Range/Units 04:36 04:36 WBC 7.4 (4.0-10.5) K/mm3 RBC 3.70 L (4.1-5.6) M/mm3 Hgb 10.6 L (12.5-18.0) gm/dl Hct 33.8 L (42-50) % MCV 91.4 (78-100) fl MCH 28.6 (26-32) pg MCHC 31.4 L (32-36) g/dl RDW 13.3 (11.5-14.0) % Plt Count 411 (150-450) K/mm3 MPV 9.4 (7.5-11.0) fl Gran % 69.8 H (36.0-66.0) % Eos # (Auto) 0.26 (0-0.5) Absolute Lymphs (auto) 1.27 (1.0-4.6) Absolute Monos (auto) 0.65 (0.0-1.3) Lymphocytes % 17.2 L (24.0-44.0) % Monocytes % 8.8 (0.0-12.0) % Eosinophils % 3.5 (0.00-5.0) % Basophils % 0.7 (0.0-0.4) % Absolute Granulocytes 5.16 (1.4-6.9) Basophils # 0.05 (0-0.4) Sodium 140 (137-145) mmol/L Potassium 4.3 (3.5-5.1) mmol/L Chloride 108 H (98-107) mmol/L Carbon Dioxide 25 (22-30) mmol/L Anion Gap 11.9 (5-15) MEQ/L BUN 18 (9-20) mg/dL Creatinine 1.04 (0.66-1.25) mg/dL Estimated GFR > 60.0 ML/MIN Glucose 103 (74-106) mg/dL Calcium 9.0 (8.4-10.2) mg/dL - Procedures and Test Procedures and Tests throughout Hospitalization: Therapy Orders & Screens 01/02/20 23:51 OT Screen per Nursing Assess Comment: Protocol Order Physician Instructions: Greater than 3 points order OT Admission Screening Reason For Exam: Triggered on Admission Diagnosis: RLE cellulitis Open Wound/Cellutlitis/Pressure Ulcers: Yes Acute Fx/ORIF/Change in wt bearing status: No Severe MUSCULOSKELETAL pain: No ADL Dysfunction: No Acute CVA w/Hemiparesis/Hemiplegia: No Decreased Functional Mobility/Strength: No Sprain/Strain: No Acute Post-op Mobility Dysfunction: No Total Points: 5 PT Screen per Nursing Assess ONCE Comment: Protocol Order Physician Instructions: Greater than 3 points order PT Admission Screenin Reason For Exam: Triggered on Admission Diagnosis: RLE cellulitis Open Wound/Cellutlitis/Pressure Ulcers: Yes Acute Fx/ORIF/Change in wt bearing status: No Severe MUSCULOSKELETAL pain: No ADL Dysfunction: No Acute CVA w/Hemiparesis/Hemiplegia: No Decreased Functional Mobility/Strength: No Sprain/Strain: No Acute Post-op Mobility Dysfunction: No Total Points: 5 Discharge Exam General Appearance: no apparent distress, alert Respiratory Exam: normal breath sounds, lungs clear, No respiratory distress Cardiovascular Exam: regular rate/rhythm, normal heart sounds Gastrointestinal/Abdomen Exam: soft, No tenderness, No mass Extremity Exam: other (improving erythema to right lower leg) Skin Exam: normal color, warm, dry Wound Assessment: Skin/Wound Assessment Wound/Incision Assessment Start: 01/02/20 23: 07 Text: Status: Active Freq: Q6H Protocol: Document 01/07/20 02:00 MG (Rec: 01/07/20 03:16 MG [id number]) Wound/Incision Assessment Right Lower Calf Wound Assessment Shift Assessment Wound Type cellulitis Wound Stage Non Pressure Wound Drainage Amount None General Appearance Open to air Reddened Surrounding Tissue [place] Comment reddened, warm to touch, slight pitting edema noted. Final Diagnosis/Problem List - Final Discharge Diagnosis/Problem (1) Cellulitis of leg Current Visit: Yes Status: Acute (2) Renal insufficiency Current Visit: Yes Status: Acute (3) Diabetes mellitus Current Visit: Yes Status: Chronic Code(s): E11.9 - TYPE 2 DIABETES MELLITUS WITHOUT COMPLICATIONS (4) Hypertension Current Visit: Yes Status: Chronic Code(s): I10 - ESSENTIAL (PRIMARY) HYPERTENSION - Discharge Disposition: Home, Self-Care Condition: Stable Prescriptions: New Clindamycin HCl 300 mg PO TID #21 capsule Continue Potassium Chloride 10 Meq Tab* [Klor Con 10 MEQ] 10 meq PO BID Simvastatin 20Mg [Zocor 20Mg] 10 mg PO DAILY Metformin HCl 500 mg [Glucophage 500 MG] 1,000 mg PO BID Moexipril HCl 15 mg [Univasc 15 MG] 15 mg PO DAILY Multivitamin [Multivitamins] 1 each PO DAILY Metoprolol Tartrate 50 mg [Lopressor 50 MG] 50 mg PO BID Losartan Potassium 100 mg PO DAILY Diltiazem HCl [Cartia Xt] 240 mg PO DAILY Follow up with: ALEJANDRA GORDON MD [Primary Care Provider] - 1 Week
[2020-01-07] MEDS: VANCOMYCIN 1 GRAM/200 ML BAG 1 GM/200 ML PIGGYBACK IV SCH (09:10)
[2020-01-07] MEDS: Klor Con 10 MEQ PO SCH (09:10)
[2020-01-07] MEDS: Lopressor 50 MG PO SCH (09:11)
[2020-01-07] MEDS: Cozaar 50 MG PO SCH (09:11)
[2020-01-07] MEDS: Cardizem CD 120 MG PO SCH (09:11)
[2020-01-07] MEDS: Apresoline 25 MG TABLET PO SCH (09:11)
[2020-01-07] MEDS: UNIVASC PO SCH (10:19)
[2020-01-07] MEDS: ENOXAPARIN SODIUM SQ SCH (10:21)
== END 2020-01-07 12:15 | disposition home or self-care (01) | DRG 603 ==
LOC: ED 20:15 → MED SURG 22:58 → OBSVTOIN 01-03 10:00
PROVIDERS: ADMIT Family Medicine; ATTEND Family Medicine
DX: L03.115 Cellulitis of right lower limb (principal); E78.00 Pure hypercholesterolemia, unspecified; I12.9 Hypertensive chronic kidney disease with stage 1 through stage 4 chronic kidney disease, or unspecified chronic kidney disease; E11.22 Type 2 diabetes mellitus with diabetic chronic kidney disease; N18.3 Chronic kidney disease, stage 3 (moderate); R05 Cough; Z85.47 Personal history of malignant neoplasm of testis; Z85.49 Personal history of malignant neoplasm of other male genital organs; Z79.899 Other long term (current) drug therapy
CPT/HCPCS: 36000; 36415; 71046; 80048; 80053; 80202; 85025; 85027; 96365; 96367; 99285; G0378; J0696; J1650; J3370; A9270-GY